=== PATIENT | male | born 1955 | race Caucasian/White ===

== ENCOUNTER 2016-12-07 19:50 | Emergency (ER) | payer MEDICAID ==
[~2016-12-07] VITALS: Ht 180.3 cm; Wt 82.0 kg
[~2016-12-07 19:50] MED LIST: CLIN1CAP5 PO; HYDR-3533 PO
[2016-12-07 19:52] VITALS: BP 100/61; PULSE 70; RESP 16; TEMP 98.2; O2SAT 95
[2016-12-07] MEDS ORDERED: ALA1CRE2 TOPICAL (20:31)
[2016-12-07] MEDS ORDERED: CLIN150 PO (20:31)
[2016-12-07 20:37] VITALS: BP 121/62
--- NOTE | 2016-12-07 20:37 | PD ---
HPI Chief Complaint: Eye Problems/Injury Time Seen by Provider: 20:31 Travel History International Travel<30 days: No Contact w/Intl Traveler<30days: No Traveled to known affect area: No History of Present Illness HPI 61-year-old white male presents to emergency department with complaints of left eyelid pain. He states that this is been going on now for approximately 4 days. It seemed to have started after he had worked in the yard cutting down some trees and debris. He has some burning and itching. There is a slight amount of discharge. He states that he has some mild photophobia and mild blurred vision. He does not wear glasses or contacts. He is up-to-date. No diplopia. No matting. No foreign body sensation. PFSH Past Medical History Arthritis: Yes Cancer: Yes (THROAT CANCER) Cardiovascular Problems: Yes Chemotherapy: No Cerebrovascular Accident: Yes Diabetes: No Diminished Hearing: [place] Endocrine: No GERD: Yes Hepatitis: Yes (HEP C) Hiatal Hernia: Yes Hypertension: Yes Immune Disorder: Yes Inguinal Hernia: Yes Implanted Vascular Access Dvce: Yes Kidney Stones: Yes Medical other: Yes (ARTHRITIS; STROKE) Neurologic: Yes Psychiatric: No Reproductive: No Respiratory: Yes (ASTHMA) Immunizations Current: Yes Radiation Therapy: No Thyroid Disease: No Tetanus Vaccination: < 5 Years PNEUMOCCOCAL Vaccine (Year): 2 Past Surgical History Body Medical Devices: RODS BUE AND LLE Oral Surgery: Yes (THROAT SX) Pacemaker: No Other Surgery: Yes (tumor removed from throat, RIGHT PNEUMOTHORAX W/CHEST TUBE) Social History Alcohol Use: No Tobacco Use: Yes (1 PPD ) Substance Use: No Allergies-Medications (Allergen,Severity, Reaction): Coded Allergies: Penicillin (Verified Allergy, Severe, THROAT SWELLING, 12/07/16) *MDRO Multi-Drug Resistant Organism (Verified Adverse Reaction, Unknown, ) 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 SKIN: No rashes, ecchymoses or lesions. Warm and dry. HEAD: Atraumatic. Normocephalic. EYES: PERRL, EOMI, no discharge or injection. No scleral icterus. The right upper eyelid is edematous, erythematous and tender. There is a firmness on the medial canthus. Lids are flipped and no foreign body seen. Fluorescein stain is negative for corneal abrasion or ulceration. Alcaine is instilled in the eyes with resolution of his discomfort. Ocular pressure is 11 in the right eye and 11 in the left eye. Visual acuity is 20/25 in the right eye and 20/30 in the left eye EARS: Clear NOSE: Nasal turbinates appear normal. THROAT: Mucosa pink and moist. Airway patent. NECK: Trachea midline. supple, moves head freely. LUNGS: Clear to auscultation. CV: Regular in rhythm. ABDOMEN: Soft nontender. EXT: No clubbing cyanosis or edema. Data Data Last Documented VS Vital Signs Date Time Temp Pulse Resp B/P Pulse Ox O2 Delivery O2 Flow Rate FiO2 12/07/16 20:13 18 12/07/16 19:52 98.2 70 100/[address] [facility] Medical Decision Making Medical Screen Exam Complete: Yes Emergency Medical Condition: Yes Medical Record Reviewed: Yes Differential Diagnosis MDM: High Differential diagnoses: Acute conjunctivitis (bacterial, viral, allergic, traumatic), glaucoma, iritis, traumatic globe injury, foreign body, corneal abrasion, corneal ulcer, diabetic retinopathy, photokeratitis, herpes keratitis , CMV retinitis Narrative Course Patient appears to have him cellulitis of the upper eyelid. There may be an allergic component due to the work in the yard. He'll be placed on clindamycin and 1% hydrocortisone cream. He'll be referred to the eye doctor. Diagnosis Primary Impression: Cellulitis of left upper eyelid Referrals: Aurora Hernandez MD 2 days Additional Instructions: Rest. Wash eyelashes with baby shampoo 3 times daily. Warm compresses. Clindamycin and 1% Hydrocort cream. Follow-up with the eye doctor in the next 2 days. Follow-up with your medical doctor within one week. Return to the ER if any problems. Med/Other Pt SpecificInfo: Prescription(s) given Scripts Hydrocortisone (Topical) ([place] Topical)1% Cream1 Applic TOPICAL TID #1 TUBE Ref 0 Prov:Karyn Guzman MD 12/07/16 Clindamycin (Cleocin)150 Mg Clv940 Mg PO Q6H #56 CAP Prov:Karyn Guzman MD 12/07/16 Disposition: 01 DISCHARGE HOME Condition: Stable Forrest Monsalve Dec 07, 2016 20:37
== END 2016-12-07 21:14 | disposition home or self-care (01) ==
LOC: NEPB 19:50
DX: H00.034 Abscess of left upper eyelid (principal); I10 Essential (primary) hypertension; Z87.442 Personal history of urinary calculi
CPT/HCPCS: 99283

== ENCOUNTER 2017-08-10 23:26 | Emergency (ER) | payer MEDICAID ==
[~2017-08-10] VITALS: Ht 180.3 cm; Wt 68.2 kg
[~2017-08-10 23:26] MED LIST changes: +ALA1CRE2 TOPICAL; +CLIN150 PO
[2017-08-10 23:33] VITALS: BP 116/66; PULSE 75; RESP 16; TEMP 98.3; O2SAT 97
[2017-08-10 23:47] VITALS: BP 116/66; PULSE 75; RESP 16; TEMP 98.3; O2SAT 97
[2017-08-10] MEDS ORDERED: ZOLP1SUB2 SL (23:47)
[2017-08-11 00:36] LABS: AUTOMATED NEUTROPHIL # 3.9 TH/MM3 (1.8-7.7); BASOPHIL # 0.1 TH/MM3 (0-0.2); BASOPHIL % 1.2 % (0.0-2.0); EOSINOPHIL # 0.1 TH/MM3 (0-0.4); EOSINOPHIL % 1.2 % (0.0-4.0); HEMATOCRIT 33.1 % (39.0-51.0); LYMPH % 26.2 % (9.0-44.0); LYMPHOCYTE # 1.7 TH/MM3 (1.0-4.8); MEAN CELL VOLUME 73.6 FL (80.0-100.0); MEAN CORPUSCULAR HEMOGLOBIN 23.8 PG (27.0-34.0); MEAN CORPUSCULAR HGB CONC 32.4 % (32.0-36.0); MONO % 8.6 % (0.0-8.0); NEUT % 62.8 % (16.0-70.0); PLATELET COUNT 143 TH/MM3 (150-450); RED CELL DISTRIBUTION WIDTH 15.3 % (11.6-17.2); WHITE BLOOD COUNT 6.3 TH/MM3 (4.0-11.0)
[2017-08-11 00:37] LABS: POTASSIUM 3.6 MEQ/L (3.5-5.1)
[2017-08-11 00:39] LABS: HEMO FLAGS AUTO DIFF
[2017-08-11 00:40] LABS: BICARBONATE 31.3 MEQ/L (21.0-32.0)
[2017-08-11 00:51] LABS: PLATELET ESTIMATE SMEAR LOW (NORMAL); PLATELET MORPHOLOGY NORMAL (NORMAL); SCAN/DIFF AUTO DIFF CONFIRMED
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
== END 2017-08-11 01:51 | disposition left against medical advice (07) ==
LOC: PHED 23:26
DX: R21 Rash and other nonspecific skin eruption (principal); B19.20 Unspecified viral hepatitis C without hepatic coma; F17.210 Nicotine dependence, cigarettes, uncomplicated; Z53.21 Procedure and treatment not carried out due to patient leaving prior to being seen by health care provider
CPT/HCPCS: 80048; 85025; 85652; 99283

== ENCOUNTER 2018-08-26 13:39 | Inpatient (IN) ==
[2018-08-26] MEDS ORDERED: Acetaminophen 650 MG Supp RECTAL ONE (14:30)
[2018-08-26] MEDS ORDERED: Vancomycin Inj 1,000 MG in Sodium Chlor 0.9% Inj 250 ML IV.SIG STA (14:30)
[2018-08-26] MEDS ORDERED: Azithromycin Inj 500 MG in Sodium Chlor 0.9% Inj 250 ML IV.SIG STA (14:34)
--- NOTE | 2018-08-26 14:49 | XR ---
EXAM DATE: 08/26/2018 2:30 PM EDT AGE/SEX: 62 years / Male INDICATIONS: Cough and chest pain. CLINICAL DATA: This is the patient's initial encounter. Patient reports that signs and symptoms have been present for 1 day and indicates a pain score of 4/10. MEDICAL/SURGICAL HISTORY: None. None. COMPARISON: [facility], XR CHEST PA AND LAT, 03/02/2017. . FINDINGS: Cardiac silhouette is mildly enlarged. Minimal bibasilar parenchymal changes are noted. There is no p neumothorax, pleural effusion or alveolar consolidation. Old rib fractures on the right Degenerative changes about both shoulders. CONCLUSION: Mild commentated cardiomegaly Old rib fractures on the right. Electronically signed by: Rich Fournier MD 08/26/2018 2:48 PM EDT
[2018-08-26] MEDS ORDERED: Sodium Chlor 0.9% Inj 500 ML IV.SIG SCH (15:00)
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
[2018-08-26 15:20] LABS: Baso # (Auto) 0.5 th/mm3 (0.0-0.2); Baso % (Auto) 3.4 % (0.0-2.0); Eos % (Auto) 0.1 % (0.0-4.0); Hemoglobin 10.2 gm/dL (13.0-17.0); Lymph # (Auto) 2.3 th/mm3 (1.0-4.8); Lymph % (Auto) 14.2 % (9.0-44.0); Mean Corpuscular HGB Conc 34.1 % (32.0-36.0); Mean Corpuscular Hemoglobin 23.8 pg (27.0-34.0); Mean Corpuscular Volume 69.7 fL (80.0-100.0); Mean Platelet Volume 6.9 fL (7.0-11.0); Mono # (Auto) 0.5 th/mm3 (0.0-0.9); Mono % (Auto) 2.9 % (0.0-8.0); Neut # (Auto) 12.6 th/mm3 (1.8-7.7); Neut % (Auto) 79.4 % (16.0-70.0); Platelet Count 195 th/mm3 (150-450); Red Cell Distribution Width 16.7 % (11.6-17.2); White Blood Count 15.9 th/mm3 (4.0-11.0)
[2018-08-26 15:30] LABS: Chloride 97 meq/L (98-107); Potassium 3.7 meq/L (3.5-5.1); Sodium 130 meq/L (136-145)
[2018-08-26 15:33] LABS: Calcium 7.6 mg/dL (8.5-10.1)
[2018-08-26 15:34] LABS: Activated Partial Thrombo Time 25.6 sec (24.3-30.1); Albumin 2.7 g/dL (3.4-5.0); Anion Gap 10 meq/L (5-15); Blood Urea Nitrogen 7 mg/dL (7-18); Carbon Dioxide 23.4 meq/L (21.0-32.0); Glucose,Random 111 mg/dL (74-106); INR 1.4 Ratio; Prothrombin Time 14.6 sec (9.8-11.6)
[2018-08-26 15:36] VITALS: RESP 16
[2018-08-26 15:36] LABS: Alanine Aminotransferase 20 U/L (12-78)
[2018-08-26 15:37] LABS: Aspartate Aminotransferase 21 U/L (15-37); Glomerular Filtration Rate Greater Than 89 mL/min (>89)
[2018-08-26 15:38] LABS: Total Protein 6.6 g/dL (6.4-8.2)
[2018-08-26 15:39] LABS: Alkaline Phosphatase 73 U/L (45-117)
[2018-08-26 15:48] LABS: Lymphocytes 17 % (9-44); Monocytes 2 % (0-8)
[2018-08-26 15:49] LABS: Platelet Estimate Normal (Normal); Platelet Morphology Normal (Normal)
[2018-08-26] MEDS ORDERED: Bupivacaine 0.25% Inj 50 ML MDV Vial NERV BLOCK ONE (16:01)
[2018-08-26] MEDS ORDERED: HYDROmorphone PF Inj 2 MG/ML Vial IV.PUSH ONE (16:07)
[2018-08-26] MEDS ORDERED: Bupivacaine PF 0.5% Inj 10 ML Vial INFILTRATN ONE (16:16)
[2018-08-26] MEDS ORDERED: Naloxone Inj 0.4 MG/ML Vial IV.PUSH PRN (16:32)
[2018-08-26] MEDS ORDERED: Acetaminophen 325 MG Tablet PO PRN ×2 (16:32)
[2018-08-26] MEDS ORDERED: Bisacodyl 10 MG Supp RECTAL PRN (16:32)
[2018-08-26] MEDS ORDERED: HYDROmorphone PF Inj 2 MG/ML Vial IV.PUSH PRN (16:32)
[2018-08-26] MEDS ORDERED: Dextrose 50% in Water 50 ML Vial IV.PUSH PRN (16:36)
[2018-08-26] MEDS ORDERED: Sod Chloride 0.9% Inj 1,000 ML IV.CONT SCH (16:45)
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
[2018-08-26] MEDS ORDERED: Sod Chloride 0.9% Inj 1,000 ML IV.SIG SCH (18:00)
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
[2018-08-26 19:51] VITALS: BP 108/64; PULSE 98; TEMP 101.9; O2SAT 97
[2018-08-26] MEDS ORDERED: Senna/Docusate Sodium 8.6/50 MG Tablet PO SCH (21:00)
[2018-08-27] MEDS ORDERED: Aztreonam Inj 2 GM in Sodium Chloride 0.9% Inj 100 ML IV.SIG SCH (01:00)
--- NOTE | 2018-08-27 13:20 | ECG ---
Date Performed: 08/26/2018 Time Performed: 14:48:37 PTAGE: 62 years EKG: SINUS TACHYCARDIA WITH OCCASIONAL SUPRAVENTRICULAR PREMATURE COMPLEXES ABNORMAL RHYTHM ECG PREVIOUS TRACING : 08/25/2018 14.07 DOCTOR: Terence Trevino Interpretating Date/Time 08/27/2018 13:13:50
[2018-08-27] MEDS ORDERED: Azithromycin Inj 500 MG in Sodium Chlor 0.9% Inj 250 ML IV.SIG SCH (14:00)
--- NOTE | 2018-08-28 10:41 | P.AMA ---
AMA Note - Diagnosis (1) Sepsis (2) Pneumonia (3) Infected finger AMA Statement: Patient Liam Bedolla has decided to leave the hospital against medical advice. This patient has the capacity to refuse care and understands the risks of leaving, including permanent disability and/or , and has had an opportunity to ask questions about his/her condition. The patient has been informed that he/she may return for care at any time, and follow up has been arranged/advised. Discharge Disposition: Against Medical Advice Patient Condition on Discharge: Serious
== END 2018-08-26 19:30 | disposition left against medical advice (07) ==
LOC: PHEFT 13:39 → PHEDA 16:28
PROVIDERS: ADMIT Internal Medicine; ATTEND Internal Medicine

== ENCOUNTER 2018-08-28 20:07 | Observation (INO) ==
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
[2018-08-28] MEDS ORDERED: Sodium Chlor 0.9% Inj 500 ML IV.SIG ONE (21:07)
[2018-08-28] MEDS ORDERED: Vancomycin Inj 1 GM/200 ML PIGGYBACK IV.SIG ONE (21:07)
[2018-08-28] MEDS ORDERED: Aztreonam Inj 2 GM in Sodium Chloride 0.9% Inj 100 ML IV.SIG ONE (21:08)
[2018-08-28] MEDS ORDERED: Vancomycin Inj 1,000 MG in Sodium Chlor 0.9% Inj 250 ML IV.SIG ONE (21:15)
[2018-08-28 21:45] LABS: Baso % (Auto) 0.2 % (0.0-2.0); Eos # (Auto) 0.1 th/mm3 (0.0-0.4); Eos % (Auto) 0.5 % (0.0-4.0); Hematocrit 28.6 % (39.0-51.0); Hemoglobin 9.4 gm/dL (13.0-17.0); Lymph # (Auto) 1.9 th/mm3 (1.0-4.8); Lymph % (Auto) 13.4 % (9.0-44.0); Mean Corpuscular HGB Conc 32.9 % (32.0-36.0); Mean Corpuscular Hemoglobin 23.4 pg (27.0-34.0); Mean Corpuscular Volume 71.1 fL (80.0-100.0); Mono # (Auto) 0.6 th/mm3 (0.0-0.9); Mono % (Auto) 3.8 % (0.0-8.0); Neut # (Auto) 11.9 th/mm3 (1.8-7.7); Neut % (Auto) 82.1 % (16.0-70.0); Platelet Count 182 th/mm3 (150-450); Red Blood Count 4.03 mil/mm3 (4.50-5.90); Red Cell Distribution Width 17.7 % (11.6-17.2); White Blood Count 14.5 th/mm3 (4.0-11.0)
[2018-08-28 22:03] LABS: Anion Gap 8 meq/L (5-15); Blood Urea Nitrogen 10 mg/dL (7-18); Calcium 8.2 mg/dL (8.5-10.1); Carbon Dioxide 27.1 meq/L (21.0-32.0); Chloride 102 meq/L (98-107); Glomerular Filtration Rate Greater Than 89 mL/min (>89); Glucose,Random 99 mg/dL (74-106); Potassium 3.9 meq/L (3.5-5.1); Sodium 137 meq/L (136-145)
[2018-08-28] MEDS ORDERED: Vancomycin Consult Pharmacy OTHER PRN (22:52)
[2018-08-28] MEDS ORDERED: Acetaminophen 325 MG Tablet PO PRN (22:54)
[2018-08-28] MEDS ORDERED: Bisacodyl 10 MG Supp RECTAL PRN (22:54)
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
[2018-08-28] MEDS ORDERED: Sodium Chloride 0.9% 2 ML Flush PRN IV.FLUSH (23:46)
[2018-08-29] MEDS ORDERED: Vancomycin Inj 2,000 MG in Sodium Chlor 0.9% Inj 500 ML IV.SIG ONE (01:00)
[2018-08-29] MEDS: Sod Chloride 0.9% Inj 1,000 ML IV.CONT SCH ×2 (01:13→12:05)
[2018-08-29] MEDS ORDERED: Melatonin 5 MG Tablet PO ONE (02:58)
[2018-08-29] MEDS ORDERED: Senna/Docusate Sodium 8.6/50 MG Tablet PO SCH (09:00)
[2018-08-29] MEDS ORDERED: Sodium Chloride 0.9% 2 ML Flush BID IV.FLUSH SCH (09:00)
[2018-08-29] MEDS ORDERED: Ketorolac Inj 30 MG/ML (IVP) Vial IV.PUSH PRN (11:06)
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
[2018-08-29 11:52] VITALS: BP 136/64; PULSE 70; RESP 16; TEMP 97.5; O2SAT 97
[2018-08-29] MEDS: Vancomycin Inj 1,250 MG in Sodium Chlor 0.9% Inj 250 ML IV.SIG SCH ×2 (11:57→11:59)
[2018-08-30] MEDS ORDERED: Pharmacy Ordered Lab Info OTHER ONE (12:45)
== END 2018-08-29 13:41 | disposition left against medical advice (07) ==
LOC: NEPE 20:07 → NEDA 20:07 → NEPE 22:52 → NEPGCP 08-29 00:10
PROVIDERS: ADMIT Internal Medicine; ATTEND Internal Medicine